=== PATIENT | female | born 1980 | race Caucasian/White ===

== ENCOUNTER 2024-12-06 09:44 | Day surgery (SDC) | payer OTHER, SELFPAY ==
[2024-12-02 14:57] VITALS: BMI 21.9
--- NOTE | 2024-12-02 14:58 | EXP.HP ---
History of Present Illness *Admission Date: 12/06/24 *History of present illness: Mrs. Ravi is a 44-year-old female who is here for diagnostic EGD. She had an EGD with me in May 31, 2020. The patient has a history of dysphagia and eosinophilic esophagitis. At the time of her last EGD in May 2020 (patient's first EGD). She had moderate to severe eosinophilic esophagitis with stricturing and this was dilated up to 12 mm. I did recommend omeprazole and fluticasone. I also recommended RAST food allergy testing. The patient does state that after the endoscopy, she had 2 to 3 days of odynophagia but thereafter had marked improvement of her swallowing and has done well. She did have food allergy testing and had a multitude of food allergies. She also had the deepest allergy to pet dander. She is try to stay away from these foods. She is off of PPI therapy and does not take budesonide. She does state that this did not help. Overall, she still continues to have dysphagia to certain foods and cannot eat certain foods. She is unable to swallow her tablets/large pills and must crush these. She has had no weight loss. She has more trouble with pasta and breads. The examination is deemed medically necessary for diagnostic EGD. The patient has been seen, interviewed and examined prior to the procedure by both myself and the anesthesia provider. [facility] Disclaimer: The information contained in this section may have been updated after the patient was seen, as this information can be updated by other users. Medical History Anxiety Surgical History History of cholecystectomy Family History Other Cancer Social History Smoking Status: Never smoker alcohol intake: never substance use type: denies use current occupational status: employed Travel in the last 8 weeks?: None Have you lived/traveled outside [place] in past 30 days?: No Contact w/someone who lives/traveled outside US past 30 days?: No Exposure to someone with infectious disease in past 14 days?: No Do you have a fever (greater than 100.4 F or 38 C)?: No Have you tested positive for COVID-19?: No Exposed to someone with COVID-19 in past 14 days?: No Do you have a sore throat?: No Do you have a cough?: No Do you have any weakness?: No Do you have any diarrhea?: No Are you experiencing any unusual bleeding?: No Do you have any muscle aches/pain?: No Do you have any abdominal pain?: No Are you experiencing loss of taste or smell?: No Review of Systems Review of Systems Review of systems (narrative): Negative *Cardiovascular Comments: Negative *Gastrointestinal Comments: Negative *Genitourinary Comments: Negative *Musculoskeletal Comments: Negative *Neurologic Comments: Negative Meds Home Medications and Allergies Home Medications ?Medication ?Instructions ?Recorded ?Confirmed ?Type lorazepam 0.5 mg tablet 0.5 mg PO TID PRN Anxiety 11/16/24 12/02/24 History sertraline 50 mg tablet 50 mg PO DAILY 11/16/24 12/02/24 History New Prescriptions to Start Prescriptions: Allergies Allergy/AdvReac Type Severity Reaction Status Date / Time aspirin Allergy Swelling Verified 12/06/24 10:32 of the Eye NSAIDS (Non-Steroidal Allergy Swelling Verified 12/06/24 10:32 Anti-Inflamma of the Eye Exam Data for Last 24 hours I & O for Last 24 hours: Intake & Output 11/29/24 11/30/24 12/01/24 12/02/24 23:59 23:59 23:59 23:59 Weight 136 lb *Routine HEENT Exam Head: Present normocephalic Eye: Present EOMI and PERRL ENT: Present mucous membranes moist *Routine Neck Exam Neck: Present supple *Routine Respiratory Exam Respiratory: Present CTA bilaterally *Routine Cardiovascular Exam Cardiovascular: Present RRR *Routine Abdominal Exam Abdominal: Present soft and normoactive bowel sounds; Absent tenderness *Routine Rectal Exam Rectal:: deferred *Routine Genitalia Exam Genitalia:: deferred *Routine Extremities Exam Extremities: Absent cyanosis, clubbing or edema *Routine Skin Exam Skin: Present warm; Absent rash *Routine Neurological Exam Neurological: Present alert and oriented X3 Assessment and Plan *Assessment and plan (1) Eosinophilic esophagitis: Status: Acute Category: Medical Code(s): K20.0 - Eosinophilic esophagitis (2) Dysphagia: Status: Acute Category: Medical Code(s): R13.10 - Dysphagia, unspecified Plan A/P: 1. Dysphagia with history of eosinophilic esophagitis is the preprocedural diagnosis. The patient will be anesthetized/sedated using MAC sedation. The patient has been seen and examined. Cardiac and lung assessment prior to the examination is stable. Proceed with planned diagnostic EGD.
--- NOTE | 2024-12-06 07:06 | HMH.PROCNOTE ---
[facility] Procedure Note Date: 12/06/24 Time: 12:02 Procedure Note:: Upper Endoscopy Procedure Report: Esophagogastroduodenoscopy with cold biopsies and TTS balloon dilation Endoscopost: Joshua Cancino II, MD Referring Physician: Maame Cash MD, [id number] [place] [address] Date of Procedure: December 06, 2024 Equipment: Olympus GIF-1100 standard upper endoscope Sedation: MAC sedation Indications: Mrs. Ravi is a 44-year-old female who is here for diagnostic EGD. She had an EGD with nd in May 31, 2020. The patient has a history of dysphagia and eosinophilic esophagitis. At the time of her last EGD in May 2020 (patient's first EGD). She had moderate to severe eosinophilic esophagitis with stricturing and this was dilated up to 12 mm. I did recommend omeprazole and fluticasone. I also recommended RAST food allergy testing. The patient does state that after the endoscopy, she had 2 to 3 days of odynophagia but thereafter had marked improvement of her swallowing and has done well. She did have food allergy testing and had a multitude of food allergies. She also had the deepest allergy to pet dander. She is try to stay away from these foods. She is off of PPI therapy and does not take budesonide. She does state that this did not help. Overall, she still continues to have dysphagia to certain foods and cannot eat certain foods. She is unable to swallow her tablets/large pills and must crush these. She has had no weight loss. She has more trouble with pasta and breads. The patient just recently started Dupixent and has had initial injection. The examination is deemed medically necessary for diagnostic EGD. Procedure: Prior to the procedure, a history and physical exam was performed, and patient's medications and allergies were reviewed. The risks, benefits and alternatives of the sedation and procedure were discussed with the patient. All questions were answered and informed consent was obtained. The patient was brought to the procedure room. Patient identification and proposed procedure were verified by the physician and the nurse. The patient was placed in a left lateral decubitus position and the scope was passed under direct vision. Throughout the procedure, the patient's blood pressure, pulse, and oxygen saturations were monitored continuously. The upper GI endoscopy was accomplished without difficulty. The patient tolerated the procedure well. Findings: The scope was passed directly into the upper esophagus and advanced to the third portion of the duodenum. The post bulbar duodenum, ampulla and duodenal bulb were normal with normal mucosa and conniventes. 2 cold biopsies were taken from the second portion of the duodenum for the disaccharidase assay. The scope was withdrawn through a normal duodenal bulb and pylorus into the stomach. There was bile reflux with linear reactive gastropathy of the antrum and body. Cold biopsies were taken from the antrum and lesser curvature. The fundus of the stomach was normal. Upon retroflexion there was no hiatal hernia. The scope was then withdrawn into the esophagus. There was corrugation and furrowing as well as esophageal stricturing and stenosis. There was some stricturing in the mid proximal esophagus and the 9 mm endoscope was gently traversed through this area with fracturing of the stricturing in 2 places (mid/proximal esophagus at 22/23 cm from incisors and distal esophagus at 38 cm from incisors). Both of these were estimated to be approximately 6 to 7 mm initial diameter. Cold biopsies were taken from the distal and proximal esophagus to rule out eosinophilic esophagitis. After biopsies were obtained, a wire-guided TTS hydrostatic balloon was utilized to dilate the entire esophagus to 12 mm. There was no evidence of reflux esophagitis or Corey's. Impression: 1. Moderate to severe eosinophilic esophagitis with esophageal stricturing?status post biopsies and gentle dilation to 12 mm 2. Bile reflux with moderate linear reactive gastropathy Plan: I will follow-up the biopsies and encourage continuation of Dupixent. I will also obtain IgE RAST food allergy panel today. The incidence and prevalence of eosinophilic esophagitis (EOE) has increased dramatically over time. This is a progressive disease that persists and very few patients achieved resolution without proper treatment. Over the years, scar tissue can develop with fibrostenotic features (rings and strictures) and are more prominent in older patients suggesting the disease can have a greater scar tissue component over the course of time when not treating the inflammatory component. This can have more long lasting ramifications and certainly may place persons a greater risk for aspiration as they get older. Delay in diagnosis, recognition and treatment are factors that may lend to chronic fibrostenosis of the esophagus. Dupixent now is the only FDA approved treatment and its impact will certainly be crucial in determining the natural history of this condition.
[2024-12-06 10:28] LABS: Urine Pregnancy, HCG Qual. Negative (Negative)
[2024-12-06 10:35] VITALS: BP 140/84; PULSE 114; RESP 18; TEMP 36.9; O2SAT 95
--- NOTE | 2024-12-06 10:47 | EXP.ANES.CKL ---
[facility] Disclaimer: The information contained in this section may have been updated after the patient was seen, as this information can be updated by other users. Medical History Anxiety Surgical History History of cholecystectomy Family History Other Cancer Social History Smoking Status: Never smoker alcohol intake: never substance use type: denies use current occupational status: employed Travel in the last 8 weeks?: None Have you lived/traveled outside US in past 30 days?: No Contact w/someone who lives/traveled outside US past 30 days?: No Exposure to someone with infectious disease in past 14 days?: No Do you have a fever (greater than 100.4 F or 38 C)?: No Have you tested positive for COVID-19?: No Exposed to someone with COVID-19 in past 14 days?: No Do you have a sore throat?: No Do you have a cough?: No Do you have any weakness?: No Do you have any diarrhea?: No Are you experiencing any unusual bleeding?: No Do you have any muscle aches/pain?: No Do you have any abdominal pain?: No Are you experiencing loss of taste or smell?: No [facility] Anesthesia Checklist Patient Identification Patient Identification: Arm Band and Verbal (Name & ) Structural Data Admitted From: Home Planned Operative Procedure/s: EGD Consent for Planned Operative Procedure(s) Verified: Yes Verified Documents: Surgical Consent and History and Physical NPO Status Verified Time NPO: 00:00 Additional verifications Patient : No Anesthesia Reactions: No Previous Colonoscopy: Yes Airway Assessment Mallampati Score:: Class II Dentition: Good Dentition Neurological Assessment Level of Consciousness: Awake, Alert and Appropriate Hx Seizures: No Numbness or tingling in extremities: No Anesthesia Plan Anesthesia Risk discussed: Yes Anesthesia Plan: Verified ASA Class: II Anesthesia Type: MAC
[2024-12-06 12:05] VITALS: BP 124/78; PULSE 104; RESP 16; TEMP 36.2; O2SAT 96
[2024-12-06 12:15] VITALS: BP 136/104; PULSE 106; RESP 18; TEMP 36.2; O2SAT 98
[2024-12-06 12:25] VITALS: BP 155/90; PULSE 95; RESP 16; TEMP 36.2; O2SAT 98
[2024-12-06 12:35] VITALS: BP 142/82; PULSE 90; RESP 16; TEMP 36.2; O2SAT 98
[2024-12-10 08:52] LABS: Interpretation Notes (.); Lactase 16.58 (>/= 14.0); Maltase 95.61 (>/= 110.0); Palatinase 6.83 (>/= 8.5); Reference Notes (.); Sucrase 26.14 (>/= 25.0)
== END 2024-12-06 12:35 | disposition home or self-care (01) ==
PROVIDERS: Visit Provider Internal Medicine Gastroenterology
PROC: 0DJ08ZZ Inspection of Upper Intestinal Tract, Via Natural or Artificial Opening Endoscopic (ICD-10-PCS; CPT 43239; principal; 2024-12-06 12:00)
DX: K22.2 Esophageal obstruction (principal); K31.89 Other diseases of stomach and duodenum; K21.00 Gastro-esophageal reflux disease with esophagitis, without bleeding; F41.9 Anxiety disorder, unspecified; Z88.6 Allergy status to analgesic agent; Z91.018 Allergy to other foods; Z91.048 Other nonmedicinal substance allergy status
CPT/HCPCS: 43239; 43249; 36415; 81025; 82657; 86003; C1726; J2003; J2704